=== PATIENT | female | born 1995 | race Caucasian/White ===

== ENCOUNTER 2016-11-11 12:09 | Emergency (ER) | payer MEDICAID | END 2016-11-11 17:48 | disposition left against medical advice (07) | LOC: UCEAST 12:09 | DX: J02.9 Acute pharyngitis, unspecified (principal); R59.1 Generalized enlarged lymph nodes; Z53.21 Procedure and treatment not carried out due to patient leaving prior to being seen by health care provider ==

== ENCOUNTER 2017-07-30 16:58 | Emergency (ER) | payer BC, MEDICAID ==
[2017-07-30 17:41] VITALS: BP 109/68
--- NOTE | 2017-07-30 19:01 | UC ---
FLU HPI - HPI Summary HPI Summary: Pt presents with fatigue, fever, body aches since yesterday. Her coworkers have all been ill with the flu. She has been taking ibuprofen her fever. She does have some nausea and has not eaten much today due to this - no vomiting. Denies cough, SOB, chest pain. - History of Current Complaint Chief Complaint: UCGI Stated Complaint: FLU SYMPTOMS Time Seen by Provider: 07/30/17 18:50 Hx Obtained From: Patient Hx Last Menstrual Period: 02/02/13 Onset/Duration: Sudden Onset Severity Currently: Moderate Severity Initially: Moderate Pain Intensity: 8 Pain Scale Used: 0-10 Numeric - Allergy/Home Medications Allergies/Adverse Reactions: Allergies Allergy/AdvReac Type Severity Reaction Status Date / Time No Known Allergies Allergy Verified 07/30/17 17:41 PMH/Surg Hx/FS Hx/Imm Hx Previously Healthy: Yes - Surgical History Surgical History: Yes Surgery Procedure, Year, and Place: arm surgery at age 1 - Family History Known Family History: Positive: Unknown - Social History Occupation: Employed Full-time Lives: With Family Alcohol Use: Rare Substance Use Type: None Smoking Status (MU): Never Smoked Tobacco Review of Systems Constitutional: Fever, Fatigue, Other - Body aches Skin: Negative Eyes: Negative ENT: Negative Respiratory: Negative Cardiovascular: Negative Gastrointestinal: Negative Neurovascular: Negative Musculoskeletal: Negative Neurological: Negative Psychological: Negative All Other Systems Reviewed And Are Negative: Yes Physical Exam Triage Information Reviewed: Yes Appearance: No Pain Distress, Well-Nourished, Ill-Appearing Vital Signs: Initial Vital Signs Temp 101.5 F 07/30/17 17:35 Pulse 107 07/30/17 17:35 Resp 20 07/30/17 17:35 BP 109/68 07/30/17 17:35 Pulse Ox 100 07/30/17 17:35 Vital Signs Reviewed: Yes Eyes: Positive: Conjunctiva Clear. Negative: Conjunctiva Inflamed, Discharge ENT: Positive: Hearing grossly normal, Pharynx normal, TMs normal, Uvula midline. Negative: Pharyngeal erythema, Nasal congestion, Nasal drainage, TM bulging, TM dull, TM red, Tonsillar swelling, Tonsillar exudate, Hoarse voice, Sinus tenderness Neck: Positive: Supple, Nontender, Other: - Anterior lymphadenopathy Respiratory: Positive: Chest non-tender, Lungs clear, Normal breath sounds, No respiratory distress, No accessory muscle use Cardiovascular: Positive: RRR, No Murmur, Pulses Normal Abdomen Description: Positive: Nontender, No Organomegaly, Soft. Negative: CVA Tenderness (R), CVA Tenderness (L), Distended, Guarding Bowel Sounds: Positive: Present Neurological: Positive: Fatigued Psychological: Positive: Age Appropriate Behavior Skin: Negative: rashes Flu Course/Dx - Course Course Of Treatment: Influenza negative, but given presentation and sick contacts will treat with tamiflu and zofran prn. - Differential Dx/Diagnosis Provider Diagnoses: Influenza Discharge - Discharge Plan Condition: Stable Disposition: HOME Prescriptions: Ondansetron ODT TAB* [Zofran 4 MG Odt TAB*] 4 mg PO Q8H PRN #12 tab.odt PRN Reason: Nausea Oseltamivir CAP* [Tamiflu CAP*] 75 mg PO BID #10 cap Patient Education Materials: Influenza (ED) Forms: *Work Release Referrals: No Primary Care Phys,NOPCP [Primary Care Provider] - Additional Instructions: If you develop a fever, shortness of breath, chest pain, new or worsening symptoms - please call your PCP or go to the ED. 1) Rest and drink plenty of fluids 2) May take ibuprofen 600mg every 6-8 hours as needed for fevers and general discomfort.
== END 2017-07-30 19:21 | disposition home or self-care (01) ==
LOC: UCEAST 16:58
DX: J11.1 Influenza due to unidentified influenza virus with other respiratory manifestations (principal)
CPT/HCPCS: 87502; 99212; G0463

== ENCOUNTER 2017-08-01 18:40 | Emergency (ER) | payer BC, OTHER ==
[2017-08-01 21:13] VITALS: BP 127/67
--- NOTE | 2017-08-01 22:00 | UC ---
Maite Valdivia Julia, scribed for Kwame Franco MD on 08/01/17 at 2128 . FLU HPI - HPI Summary HPI Summary: This patient is a 22 year old F presenting to [facility] with a chief complaint of constant diarrhea every hour since yesterday. Patient reports lower abdominal pain prior to bouts of diarrhea, and post nasal drip. Patient denies headache, body aches, sore throat and cough. The patient rates the pain 2/10 in severity. Pt tested positive for influenza recently and was prescribed Tamiflu. Her previous flu symptoms were body aches, vomiting, and nausea. - History of Current Complaint Chief Complaint: UCRespiratory Stated Complaint: RECHECK FLU SYMPTOMS Time Seen by Provider: 08/01/17 21:15 Hx Last Menstrual Period: 2 wks ago Onset/Duration: Lasting Days Severity Currently: Mild Severity Initially: Moderate Pain Intensity: 2 Pain Scale Used: 0-10 Numeric Associated Signs & Symptoms: Positive: Diarrhea Related Hx: Possible Flu/Infectious Exposure - Allergy/Home Medications Allergies/Adverse Reactions: Allergies Allergy/AdvReac Type Severity Reaction Status Date / Time No Known Allergies Allergy Verified 08/01/17 21:13 Home Medications: Home Medications Escitalopram (NF) [Lexapro 5 mg (NF)] 1 tab PO DAILY 08/01/17 [History Confirmed 08/01/17] PMH/Surg Hx/FS Hx/Imm Hx Previously Healthy: No - recent influenza - Surgical History Surgical History: Yes Surgery Procedure, Year, and Place: arm surgery at age 1 - Family History Known Family History: Positive: Other - breast CA - grandmother - Social History Alcohol Use: Rare Substance Use Type: None Smoking Status (MU): Never Smoked Tobacco Review of Systems ENT: Negative - sore throat, Nasal Discharge - down throat Respiratory: Negative - cough Gastrointestinal: Vomiting, Diarrhea, Nausea Musculoskeletal: Negative - body aches Neurological: Negative - headache All Other Systems Reviewed And Are Negative: Yes Physical Exam Triage Information Reviewed: Yes Vital Signs: Initial Vital Signs Temp 98.7 F 08/01/17 21:10 Pulse 85 08/01/17 21:10 Resp 18 08/01/17 21:10 BP 127/67 08/01/17 21:10 Pulse Ox 99 08/01/17 21:10 Vital Signs Reviewed: Yes - Additional Comments General: well-appearing, no pain distress Skin: warm, color reflects adequate perfusion, dry Head: normal Eyes: EOMI, SHAVONNE ENT: rhinorrhea, moist oral mucosa Neck: supple, nontender Respiratory: CTA, breath sounds present Cardiovascular: RRR Abdomen: soft, nontender Bowel: present Musculoskeletal: normal, strength/ROM intact Neurological: normal, sensory/motor intact, A&O x3 Psychological: affect/mood appropriate Flu Course/Dx - Course Course Of Treatment: WILL STOP THE TAMIFLU IT MAY BE CONTRIBUTING TO THE DIARRHEA. - Differential Dx/Diagnosis Provider Diagnoses: DIARRHEA. FLU LIKE ILLNESS Discharge - Discharge Plan Condition: Stable Disposition: HOME Patient Education Materials: Acute Diarrhea (ED) Forms: *Work Release Referrals: [facility] [place] PH[facility]ICIAN REFERRAL [Outside] No Primary Care Phys,NOPCP [Primary Care Provider] - Additional Instructions: FOLLOW UP WITH YOUR DOCTOR. STOP TAKING THE TAMIFLU. GET RECHECKED FOR ANY WORSENING OF YOUR CONDITION OR QUESTIONS OR CONCERNS. The documentation as recorded by the Maite barnhart Julia accurately reflects the service I personally performed and the decisions made by me, Kwame Franco MD.
== END 2017-08-01 21:43 | disposition home or self-care (01) ==
LOC: UCEAST 18:40
DX: J11.1 Influenza due to unidentified influenza virus with other respiratory manifestations (principal); R19.7 Diarrhea, unspecified
CPT/HCPCS: 99211; G0463

== ENCOUNTER 2018-06-30 15:41 | Emergency (ER) | payer BC, OTHER ==
[2018-06-30 16:27] VITALS: BP 113/67
--- NOTE | 2018-06-30 17:23 | UC ---
Respiratory Complaint HPI - HPI Summary HPI Summary: Patient presents to urgent care with 2 complaints. One, patient states she's had a sore throat for 3 days. Patient states she feels her glands are swollen. Patient states she does have sinus congestion postnasal drip. No fevers or chills. No analgesia taken. Patient is able to drink fluids without difficulty. No drooling. Patient states she's got pain when she swallows. Patient denies any nausea vomiting. No belching. Patient denies sick contacts. Patient states she as well as be checked for strep throat. Second concern patient has is a fishlike odor vaginal discharge. Patient states she's never had this before. Patient denies any urinary symptoms and denies . Patient states she's not concerned she has an STD. Patient states a friend told her she may have BV and she wanted to get checked. At the time of my evaluation, patient had been waiting for evaluation urgent care due to volume. Patient states she could not wait did not want to be tested for this. Patient states she follow-up with her INTERTYPE OPERATOR or return. Patient's medications reviewed this visit. - History of Current Complaint Chief Complaint: UCRespiratory Stated Complaint: ST/PERSONAL Time Seen by Provider: 06/30/18 17:09 Hx Obtained From: Patient Hx Last Menstrual Period: 06/10/18 Onset/Duration: Gradual Onset Severity Initially: Moderate Severity Currently: Moderate Pain Intensity: 5 Pain Scale Used: 0-10 Numeric - Allergies/Home Medications Allergies/Adverse Reactions: Allergies Allergy/AdvReac Type Severity Reaction Status Date / Time No Known Allergies Allergy Verified 06/30/18 16:17 Home Medications: Home Medications Ibuprofen TAB* [Motrin TAB* 800 MG] 800 mg PO Q5H PRN 06/30/18 [History Confirmed 06/30/18] PMH/Surg Hx/FS Hx/Imm Hx Previously Healthy: Yes - Surgical History Surgical History: Yes Surgery Procedure, Year, and Place: arm surgery at age 1; 2013 - Family History Known Family History: Positive: Unknown, Non-Contributory - Social History Occupation: Employed Full-time Lives: With Family Alcohol Use: Rare Substance Use Type: None Smoking Status (MU): Never Smoked Tobacco Review of Systems All Other Systems Reviewed And Are Negative: Yes Constitutional: Positive: Negative ENT: Positive: Sore Throat, Nasal Discharge, Sinus Congestion Genitourinary: Positive: Vaginal/Penile Discharge. Negative: Dysuria, Hematuria , Urgency, Vaginal/Penile Pain, Vaginal/Penile Tenderness Physical Exam - Summary Physical Exam Summary: Vital Signs Reviewed: Yes A+Ox3, no distress Eyes: Conjunctiva Clear, SHAVONNE. EOM intact and full ENT: Hearing grossly normal TM x 2 clear, turbinates inflammed and boggy, + PND. mmoist, uvula midline, no exudate, mild erythema, no difficulty with secretions Neck: Positive: Supple, + submandibular LA Respiratory: Positive: No respiratory distress, No accessory muscle use + CTA throughout no w/r Cardiovascular: RRR nl s1, s2 no m/r CBT <2 sec abd soft + BS nt/nd no guarding, no distension INTERTYPE OPERATOR: pt refused exam as had to leave for commitment Musculoskeletal Exam: NETTLES x 4 without difficulty Strength Intact, ROM Intact Neurological: Positive: Alert, + sensation throughout Psychological: Positive: Normal Response To Family Skin: Positive: no rash, no ecchymosis Triage Information Reviewed: Yes Vital Signs: Initial Vital Signs Temp 100.2 F 06/30/18 16:22 Pulse 105 06/30/18 16:22 Resp 18 06/30/18 16:22 BP 113/67 06/30/18 16:22 Pulse Ox 98 06/30/18 16:22 UC Diagnostic Evaluation - Laboratory O2 Sat by Pulse Oximetry: 98 Respiratory Course/Dx - Course Course Of Treatment: Patient presents to urgent care with 2 complaints. Patient with sore throat that she's had progressive for 3 days. Patient with sinus congestion postnasal drip. Patient without difficulty with secretions. Patient states she is concerned she has strep and was to be checked. Vital signs are stable. Patient has boggy turbinates with mucus and postnasal drip. Patient with mild erythema. No exudate. Uvula symmetric. We will check a rapid strep. Discussed with patient Flonase as well as supportive measures. Secretion precaution. Humidified air. Patient comfortable in agreement with plan. Second concern is related to vaginal discharge. Patient states his fishlike odor. Patient states she is concerned she is BV after researching in the intermittent tugging difference. Patient is not concern of sexual transmitted disease. Patient states she is not . I offered patient a pelvic exam but she declines in the interest of time she had a commitment. I did offer patient's also as well and she also declined this. Encouraged patient to return to be checked. Patient given information for [facility]. Patient also encouraged to follow-up at the [facility] clinic and him, [facility] , [facility] [place], or her primary. Patient states understanding agreement with plan. - Differential Dx/Diagnosis Provider Diagnosis: H/O vaginal discharge, Rhinosinusitis, Pharyngitis Discharge - Sign-Out/Discharge Documenting (check all that apply): Patient Departure All imaging exams completed and their final reports reviewed: No Studies - Discharge Plan Condition: Stable Disposition: HOME Prescriptions: Amoxicillin/Clavulanate TAB* [Augmentin TAB 875*] 875 mg PO BID #20 tab Fluticasone NASAL SPRAY 50MCG* [Flonase NASAL SPRAY 50MCG*] 2 spray BOTH NARES DAILY #1 btl Patient Education Materials: Rhinosinusitis (ED) Forms: *Work Release Referrals: No Primary Care Phys,NOPCP [Primary Care Provider] - Additional Instructions: - Stay well hydrated. Drink plenty of non-alcoholic, non-caffinated beverages. \ -Gargle spit with warm, salt water - cold fluids may be soothing for your throat - popsicles, jello - Alternate ibuprofen (Advil, Motrin) 600mg and Tylenol 1000mg every 3 hours for pain or fever. Take with food. Do NOT take for more than 4-5 days. - These infections are spread by secretions - do NOT share eating or drinking utensils - clean items you share with other people such as cell phones, computer mouse, TV remote, computer tablets,etc. Once you have been antibiotics for 2 days, change your toothbrush and your pillowcase. - get plenty of restful sleep - humidify the air in the room where you sleep - boil water, run a hot steam shower, vaporizer, cups of water by heat register - okay to take over the counter decongestant and cough medication - use nasal spray as prescribed - contact your doctor or return with questions or concerns The doctor that evaluated you today recommends you return to urgent care, your doctor, your hangar attendant for further evaluation of your vaginal discharge - Billing Disposition and Condition Condition: STABLE Disposition: Home
== END 2018-06-30 17:28 | disposition home or self-care (01) ==
LOC: UCCORT 15:41
DX: J02.9 Acute pharyngitis, unspecified (principal); J32.9 Chronic sinusitis, unspecified; N89.8 Other specified noninflammatory disorders of vagina
CPT/HCPCS: 87651; 99212; G0463

== ENCOUNTER 2019-03-22 09:52 | Emergency (ER) | payer BC, MEDICAID ==
[2019-03-22 11:35] VITALS: BP 112/71
--- NOTE | 2019-03-22 12:28 | UC ---
Throat Pain/Nasal Jose HPI - HPI Summary HPI Summary: 23 year old 28 week female presents with a complaint of her uvula being swollen since this morning. Notes mild discomfort. Has had uri sx over the past week and can feel her uvula in the back of her throat. Denies difficulty breathing or swallowing, no fever nor chills. - History of Current Complaint Chief Complaint: UCRespiratory Stated Complaint: ST,HURTS TO SWALLOW(38 WEEKS ) Time Seen by Provider: 03/22/19 11:45 Hx Obtained From: Patient Hx Last Menstrual Period: 06/10/18 ?: Yes - 38 weeks Onset/Duration: Sudden Onset Pain Intensity: 0 Cough: Nonproductive - Allergies/Home Medications Allergies/Adverse Reactions: Allergies Allergy/AdvReac Type Severity Reaction Status Date / Time No Known Allergies Allergy Verified 03/22/19 11:35 Home Medications: Home Medications Ferrous Gluconate TAB* [Fergon TAB*] 325 mg PO DAILY 03/22/19 [History Confirmed 03/22/19] Mv-Mn/Iron/FA/Herbal/Digestive [ One Tablet] 1 each PO 03/22/19 [History ] Venlafaxine CAP (NF) [Effexor CAP (NF)] 75 mg 03/22/19 [History] PMH/Surg Hx/FS Hx/Imm Hx Previously Healthy: Yes - - Surgical History Surgical History: Yes Surgery Procedure, Year, and Place: arm surgery at age 1; 2013 - Family History Known Family History: Positive: Unknown, Non-Contributory - Social History Alcohol Use: None Substance Use Type: None Smoking Status (MU): Never Smoked Tobacco Review of Systems All Other Systems Reviewed And Are Negative: Yes Constitutional: Negative: Fever, Chills, Fatigue Skin: Negative: Rash Eyes: Negative: Blurred Vision, Eye Redness, Photophobia ENT: Positive: Other - uvula swelling, can feel it in the back of her throat, not painful.. Negative: Sore Throat Respiratory: Positive: Cough - dry. Negative: Shortness Of Breath Cardiovascular: Negative: Palpitations, Chest Pain Gastrointestinal: Negative: Abdominal Pain, Vomiting, Diarrhea, Nausea Genitourinary: Negative: Vaginal/Penile Discharge, Abnormal Bleeding Motor: Positive: Negative Neurovascular: Positive: Negative Musculoskeletal: Positive: Negative Neurological: Positive: Negative Psychological: Positive: Negative Is Patient Immunocompromised?: No Physical Exam Triage Information Reviewed: Yes Appearance: Well-Appearing, No Pain Distress, Well-Nourished Vital Signs: Initial Vital Signs Temp 98.9 F 03/22/19 11:32 Pulse 101 03/22/19 11:32 Resp 18 03/22/19 11:32 BP 112/71 03/22/19 11:32 Pulse Ox 99 03/22/19 11:32 Vital Signs Reviewed: Yes Eyes: Positive: Conjunctiva Clear ENT: Positive: Nasal congestion, TMs normal, Uvula midline - erythemaous and swollen, no exudate.. Negative: Pharyngeal erythema, Tonsillar swelling, Tonsillar exudate, Sinus tenderness Neck: Positive: Supple, Nontender, No Lymphadenopathy Respiratory: Positive: Lungs clear, Normal breath sounds, No respiratory distress Cardiovascular: Positive: RRR, No Murmur, Brisk Capillary Refill Abdomen Description: Positive: Nontender Musculoskeletal Exam: Normal Neurological Exam: Normal Psychological Exam: Normal Skin Exam: Normal Throat Pain/Nasal Course/Dx - Differential Dx/Diagnosis Differential Diagnosis/HQI/PQRI: Pharyngitis Provider Diagnosis: Uvulitis Discharge ED - Sign-Out/Discharge Documenting (check all that apply): Patient Departure All imaging exams completed and their final reports reviewed: Yes - Discharge Plan Condition: Stable Disposition: HOME Prescriptions: Amoxicillin [Amoxicillin 250 MG/5 ML] 10 ml PO TID 10 Days #300 ml Patient Education Materials: Uvulitis (ED) Referrals: Cookie Landin MD [Primary Care Provider] - Additional Instructions: Take antibiotics as prescribed. You may take Tylenol over the counter as needed for pain. Follow up with your primary care physician if your symptoms persist or worsen. - Billing Disposition and Condition Condition: STABLE Disposition: Home
== END 2019-03-22 12:34 | disposition home or self-care (01) ==
LOC: UCCORT 09:52
DX: O99.613 Diseases of the digestive system complicating pregnancy, third trimester (principal); K12.2 Cellulitis and abscess of mouth; Z3A.38 38 weeks gestation of pregnancy
CPT/HCPCS: 99212; G0463

== ENCOUNTER 2019-09-10 07:36 | Emergency (ER) | payer BC, MEDICAID, OTHER ==
--- OUTSIDE RECORDS SUMMARY | 2019-09-10 07:45 | XMS REPORT | Continuity of Care Document ---
:1995 External Reference #:[id number] Author Name Nayeli Pretty NP Address [address] [place] [id number] Problems Description No Information Available Social History Type Date Description Comments Sex Female Tobacco Use Reviewed: 07/24/18 Never Smoked Cigars Tobacco Use Reviewed: 07/24/18 Never Smoked A Pipe Smoking Status Reviewed: 07/24/18 Never Smoked A Pipe Tobacco Use Reviewed: 07/24/18 Never Used Smokeless Tobacco ETOH Use Occasionally consumes alcohol Tobacco Use Start: Unknown End: Patient is a former smoker high school Unknown Recreational Drug Use Denies Drug Use Recreational Drug Use Teaching provided regarding Naloxone/Narcan Training Available At [facility] Tattoo/Piercing Tattoo Tattoo/Piercing Tattoos professionally done Allergies, Adverse Reactions, Alerts Active Allergies Reaction Severity Comments Date NKDA 07/24/2018 Cats 07/24/2018 Medications Active Medications SIG Qnty Indications Ordering Provider Date Venlafaxine HCL Unknown Immunizations Description No Information Available Vital Signs Date Vital Result Comment 08/03/2019 10:55am Body Temperature 98.7 F BP Systolic 114 mmHg BP Diastolic 80 mmHg Heart Rate 74 /min Weight 191.00 lb 07/24/2018 4:30pm BP Systolic 124 mmHg BP Diastolic 71 mmHg Height 67.5 inches 5'7.50" Weight 181.00 lb BMI (Body Mass Index) 27.9 kg/m2 Results Test Acquired Date Facility Test Result H/L Range Note Laboratory test 08/03/2019 [facility] Test neg finding Urine..... Procedures Description No Information Available Medical Devices Description No Information Available Encounters Description No Information Available Assessments Date Code Description Provider 08/03/2019 Z30.09 Encounter for other general counseling and Nayeli Pretty NP advice on contraception 08/03/2019 Z01.419 Encounter for gynecological examination Nayeli Pretty NP (general) (routine) without abnormal findings 08/03/2019 Z32.02 Encounter for test, result negative Nayeli Pretty NP 08/03/2019 F32.89 Other specified depressive episodes Nayeli Pretty NP 08/03/2019 Z12.4 Encounter for screening for malignant neoplasm Nayeli Pretty NP of cervix 08/03/2019 Z11.3 Encounter for screening for infections with a Nayeli Pretyt NP predominantly sexual mode of transmission Plan of Treatment 08/03/2019 - Nayeli Pretty NPZ30.09 Encounter for other general counseling and advice on contraceptionComments:Patient plans consistent condom use. She is not interested in starting any other bc. Advised that the ParaGard is another hormone free option if she is interested in the future.Z01.419 Encounter for gynecological examination (general) (routine) without abnormal findingsComments: Reviewed healthy diet, exercise and safety with patient who states understanding.Counseled on Preventive , STI Awareness, Seat Belt Use, and Self Breast ExamFollow up:F/u in one year for annual. Sooner prn any concerns.Z32.02 Encounter for test, result negativeComments: amenorrhea likely secondary to breast [id number] Other specified depressive episodesComments:See PHQ9. Patient is f/u with Dr. Landin. She is not interested in counseling at this time.Z12.4 Encounter for screening for malignant neoplasm of cervixNew Labs:Thinprep Tis Pap Reflex HPV Mrna E6/E7, Ordered: Z11.3 Encounter for screening for infections with a predominantly sexual mode of transmissionNew Labs:Chlamydia/N. Gonorrhoeae Rna, Tma, Uroge, Ordered: 08/03Comments:Reviewed STD risks and prevention with patient. Patient states understanding. Functional Status Description No Information Available Mental Status Description No Information Available Referrals Description No Information Available
[2019-09-10 08:16] VITALS: BP 118/79
--- NOTE | 2019-09-10 08:49 | UC ---
Throat Pain/Nasal Jose HPI - HPI Summary HPI Summary: 24-year-old woman comes in with a chief complaint of sore throat for 1 day. She is breast-feeding. Hurts when she swallows. Denies any runny nose cough chest congestion or shortness of breath. - History of Current Complaint Chief Complaint: UCGeneralIllness Stated Complaint: ST Time Seen by Provider: 09/10/19 08:44 Hx Last Menstrual Period: 06/10/18 Pain Intensity: 1 - Allergies/Home Medications Allergies/Adverse Reactions: Allergies Allergy/AdvReac Type Severity Reaction Status Date / Time No Known Allergies Allergy Verified 09/10/19 08:08 Home Medications: Home Medications Amoxicillin PO (*) [Amoxicillin 875 MG (*)] 875 mg PO BID #20 tab 09/10/19 [Rx] Ibuprofen TAB* [Advil TAB*] 400 mg PO Q6H PRN 09/10/19 [History Confirmed ] Venlafaxine EXT RELEASE CAP* [Effexor Xr CAP*] 37.5 mg PO BEDTIME 09/10/19 [ History Confirmed 09/10/19] Venlafaxine EXT RELEASE CAP* [Effexor Xr CAP*] 75 mg PO BEDTIME 09/10/19 [ History Confirmed 09/10/19] PMH/Surg Hx/FS Hx/Imm Hx Previously Healthy: Yes - Surgical History Surgical History: Yes Surgery Procedure, Year, and Place: , 2019 2013; Right Arm Calcification, ~1996 - Family History Known Family History: Positive: Unknown, Non-Contributory - Social History Alcohol Use: Rare Substance Use Type: None Smoking Status (MU): Never Smoked Tobacco Review of Systems All Other Systems Reviewed And Are Negative: Yes Constitutional: Positive: Negative Skin: Positive: Negative Eyes: Positive: Negative ENT: Positive: Sore Throat Respiratory: Positive: Negative Cardiovascular: Positive: Negative Gastrointestinal: Positive: Negative Motor: Positive: Negative Neurovascular: Positive: Negative Musculoskeletal: Positive: Negative Neurological/Mental Status: Positive: Negative Psychological: Positive: Negative Is Patient Immunocompromised?: No Physical Exam Triage Information Reviewed: Yes Appearance: Well-Appearing, No Pain Distress, Well-Nourished Vital Signs: Initial Vital Signs Temp 97.5 F 09/10/19 08:07 Pulse 98 09/10/19 08:07 Resp 16 09/10/19 08:07 BP 118/79 03/19/20 08:07 Pulse Ox 97 09/10/19 08:07 Vital Signs Reviewed: Yes Eye Exam: Normal Eyes: Positive: Conjunctiva Clear ENT: Positive: Pharyngeal erythema, Tonsillar swelling - 2+ B/L Neck: Positive: Supple Respiratory: Positive: No respiratory distress Musculoskeletal: Positive: Strength Intact Neurological: Positive: Alert Psychological: Positive: Age Appropriate Behavior Skin Exam: Normal Throat Pain/Nasal Course/Dx - Differential Dx/Diagnosis Provider Diagnosis: Strep pharyngitis Discharge ED - Sign-Out/Discharge Documenting (check all that apply): Patient Departure All imaging exams completed and their final reports reviewed: No Studies - Discharge Plan Condition: Stable Disposition: HOME Prescriptions: Amoxicillin PO (*) [Amoxicillin 875 MG (*)] 875 mg PO BID #20 tab Patient Education Materials: Strep Throat (ED) Referrals: Cookie Landin MD [Primary Care Provider] - Additional Instructions: FOLLOW UP WITH YOUR DOCTOR IF NOT COMPLETELY IMPROVED. GET REEVALUATED IF NOT IMPROVING OR WORSE OR ANY QUESTIONS OR CONCERNS. - Billing Disposition and Condition Condition: STABLE Disposition: Home
== END 2019-09-10 08:54 | disposition home or self-care (01) ==
LOC: UCCORT 07:36
DX: J02.0 Streptococcal pharyngitis (principal)
CPT/HCPCS: 87651; 99212; G0463